=== PATIENT | male | born 1965 | race Caucasian/White ===

== ENCOUNTER 2025-03-12 09:25 | Inpatient (IN) | payer OTHER, SELFPAY ==
[2025-03-12 09:29] VITALS: BP 143/107; PULSE 69; RESP 18; O2SAT 98; BMI 26.0
--- NOTE | 2025-03-12 09:53 | ED_ITS ---
HPI - Psych General Chief Complaint: Anxiety Stated Complaint: depressed Time Seen by Provider: 03/12/25 09:47 Source: patient Mode of arrival: ambulatory Limitations: no limitations History of Present Illness ED Provider: Goldie Qureshi NP HPI Narrative: Patient is a 59-year-old male who presents emergency department for evaluation. At the time evaluation of patient his daughters has not bedside. He admits that he has been from his over the past 3 months and he has been having a difficult time dealing with this. Having increasing anxiety and depression. He isn't sleeping well. He has had an approximate 60 lb weight loss during this time, he does admit that he began exercising, but also has not been eating very much. He additionally is undergoing dental work with ?anchors? healing in his mouth so he has only been eating scrambled eggs, bananas, in a few whether soft items but this is a significant change from his prior diet and certainly a lower calorie intake. He denies any fevers, night sweats, shortness of breath, nausea, vomiting, abdominal pain, chest pain, rashes or lesions. No history of malignancy. He denies any recreational drug or alcohol usage. Endorses vague suicidal ideations but no specific plan, stating ?I can not go on like this?. He does not follow up with the primary care doctor regularly, he is not taking any prescribed medications. Related Data Home Medications ?Medication ?Instructions ?Recorded ?Confirmed No Known Home Meds 03/13/25 03/13/25 Allergies Allergy/AdvReac Type Severity Reaction Status Date / Time No Known Allergies Allergy Verified 03/12/25 09:34 Review of Systems 2 Review of Systems: Yes all other systems are reviewed and are negative PMFSH Past Medical History Attestation statement: The following information was validated with the patient. Source: old records reviewed Social History Social History Household Members: None Housing: House Do you presently have visiting nurse or other home services: No Alcohol intake: never Patient Tobacco Use Status: Former Tobacco user Tobacco use type: Cigar Smoked in Last 30 Days: Yes e-Cigarette/Vaping Use: Never Used Patient Interested in Nicotine Replacement: No Patient Given Instructions on How to Stop Smoking: No Second Hand Smoke Exposure: No Use of substances other than those prescribed or required for medical reasons: No Currently Displaying Signs/Symptoms of Drug Intoxication Withdrawal: No Any prior treatment program specific to substance use: No Have you been hit, kicked, punched, or otherwise hurt by someone within the past year? If so, by whom?: No Do you feel safe in your current relationship?: Yes Is there a partner from a previous relationship who is making you feel unsafe now?: No Are you made to feel afraid or neglected: No Spiritual Healthcare Practices: None Amish Healthcare Practices: None Cultural Healthcare Practices: none Advance Directives: No Advance Directives Information Provided: No Do you have a plan to hurt others: No Plan Recently lost weight without trying: Unsure How much weight loss: Unsure Eating poorly because of decreased appetite: No Nutrition screen score: 4 Nutrition Risks: No Nutritional Risk Poor oral hygiene: No Physical Exam 2 Vital Signs: Vital Signs: Last Vital Signs Temp 97.6 F 03/14/25 16:19 Pulse 89 03/14/25 16:19 Resp 20 03/14/25 16:19 BP 140/90 H 03/14/25 16:19 Pulse Ox 98 03/14/25 16:19 O2 Del Method Room Air 03/14/25 16:19 BMI result Body Mass Index 26.0 Appearance: Alert.?Oriented to person, place and time. No acute distress.?Normal affect. Eyes: Pupils equal, round and reactive to light.? ENT: Pharynx normal.?? Neck: Normal inspection.? Neck supple.?? CVS: Heart sounds normal. Normal heart rate and rhythm.? Pulses normal.?? Respiratory: No respiratory distress.? Lung sounds clear to auscultation bilaterally?? Abdomen: Soft and non-tender. Normoactive bowel sounds. Skin: Skin warm and dry.? Normal skin color.? Extremities: No lower extremity edema.? Neuro: Moves all extremities spontaneously. Sensation intact bilaterally. CN II- XII intact. No focal neuro deficits. Ambulates with normal steady gait. Course Reevaluation(s) Reevaluation #1: Evaluated by care team, deemed inpatient level of care bed search. Reevaluation #2: 03/13/2025; no events were reported by nursing overnight, VSS, to continue physician observation, patient is section 12, bed search is underway. Time: 09:35 Reevaluation #3: Time: 06:20 Date: 03/14/25 Provider: Eh Abdul MD Patient in physician observation for psychiatric evaluation.? Patient was been in the emergency department for 45 hours. No acute events reported overnight. Patient slept through the night however did have some anxiety and was given Ativan 2 mg orally with a positive affect. No current complaints. VS stable.? Patient was re-evaluated by the care team and is still in in-patient bed search. Will continue to monitor. Time: 18:30 Date: 03/14/25 Provider: Eh Abdul MD Physician observation ended at 1443. Patient to be admitted as inpatient to psychiatry. Medications Administered Generic Name Dose Route Start Last Admin Trade Name Freq PRN Reason Stop Dose Admin Hydroxyzine HCl 25 mg 03/14/25 12:54 03/14/25 18:22 Hydroxyzine Hcl 25 Mg Tablet PO 25 mg Q6H PRN Administration mild anxiety Discontinued Medications Generic Name Dose Route Start Last Admin Trade Name Freq PRN Reason Stop Dose Admin Diphenhydramine HCl 50 mg 03/13/25 02:27 03/13/25 02:33 Diphenhydramine Hcl 25 Mg Capsule PO 03/13/25 02:28 50 mg ONCE ONE Administration Ibuprofen 600 mg 03/13/25 02:27 03/13/25 02:34 Ibuprofen 600 Mg Tablet PO 03/13/25 02:28 600 mg ONCE ONE Administration Lorazepam 1 mg 03/12/25 14:26 03/12/25 14:29 Lorazepam 1 Mg Tablet PO 03/12/25 14:27 1 mg ONCE ONE Administration Lorazepam 2 mg 03/13/25 08:03 03/13/25 08:20 Lorazepam 1 Mg Tablet PO 03/13/25 08:04 2 mg ONCE ONE Administration Lorazepam 2 mg 03/13/25 21:17 03/13/25 21:27 Lorazepam 1 Mg Tablet PO 03/13/25 21:18 2 mg ONCE ONE Administration Melatonin 9 mg 03/12/25 23:22 03/12/25 23:27 Melatonin 3 Mg Tablet PO 03/12/25 23:23 9 mg ONCE ONE Administration Medical Decision Making Medical Decision Making MDM Narrative: Patient is a 51-year-old male with no reported past medical history presenting to emergency department for evaluation of anxiety, depression, vague suicidal ideations without a specific plan. He does admit to a recent weight loss of 60 lb over the past few months this is coupled with introduction of exercise, significant dietary changes due to his dental work as well as decreased caloric intake he is without any constitutional symptoms. Will obtain CBC to evaluate for leukocytosis/ anemia, CMP and lipase to evaluate for abnormal electrolytes /abnormal renal function/ abnormal hepatic/biliary function, TSH and reflex T4 and Urinalysis. In addition will obtain toxicology testing and refer to care team for safe disposition planning Differential Diagnosis Differential Diagnoses: The differential diagnosis associated with the presentation includes (See narrative above and below for further detail) Admission/Observation Consideration of admission/observation: Escalation of care including admission/observation considered Patient is being observed in the Emergency Department for depression and anxiety. Observation time was started at 10:00 on 03/12/2025?The patient is currently stable and non-toxic appearing. Observation is being initiated in the Emergency Department to allow time to help differentiate if the patient's depression and anxiety is due to Substance Induced Mood Disorder and Anxiety versus Major Depressive Disorder, Bipolar Hilary, Bipolar Depression, and Schizophrenia. The patient will receive frequent psychiatric assessments from the provider as well as from nursing staff. The patient will also be monitored for the need of PRN agitation medications such as Haldol, Ativan, and Benadryl. Consult Healthcare Provider Management of the patient was discussed with: Behavioral Health Provider (CARE team) Lab Data MDM Lab Attestation statement: I reviewed the patient's lab results. CBC is without leukocytosis anemia or thrombocytopenia. No electrolyte derangement. No MARTHA. Unremarkable LFTs and lipase. TSH is normal. alcohol level nondetectable 03/12/25 11:06 03/12/25 11:06 Labs: Lab Results 03/12/25 03/12/25 Range/Units 11:06 16:03 WBC 5.5 (4.8-10.8) X10*3/uL RBC 5.18 (4.60-5.80) X10*6/uL Hgb 16.5 (14.0-18.0) g/dl Hct 48.7 (42.0-52.0) % MCV 94.0 (80.0-98.0) fL MCH 31.9 (27.0-33.0) pg MCHC 33.9 (31.0-36.0) g/dl RDW 12.8 (11.0-16.0) % Plt Count 190 (160-400) X10*3/uL MPV 9.7 (9.4-12.4) fL Immature Gran % (Auto) 0.4 (0.0-0.4) % Neut % (Auto) 64.8 (45-73) % Lymph % (Auto) 28.4 (20-40) % Mcminn % (Auto) 5.3 (2-11) % Eos % (Auto) 0.7 (0-4) % Baso % (Auto) 0.4 (0-2) % Lymph # (Auto) 1.6 (1.2-4.9) X10*3/uL Mcminn # (Auto) 0.3 (0.1-1.2) X10*3/uL Eos # (Auto) 0.0 (0.0-0.4) X10*3/uL Baso # (Auto) 0.0 (0.0-0.2) X10*3/uL Abs Immat Gran (auto) 0.02 (0.00-0.03) X10*3/uL Absolute Neuts (auto) 3.6 (2.0-8.3) x10*3/uL Absolute Nucleated RBC 0.000 (0.0-0.012) X10*3/uL Nucleated RBC % (auto) 0.0 (0.0-0.2) /100WBC Sodium 139 (135-145) mmol/L Potassium 4.3 (3.3-5.1) mmol/L Chloride 106 (96-108) mmol/L Carbon Dioxide 25 (22-29) mmol/L Anion Gap 12 (12-20) BUN 27 H (9-16) mg/dL Creatinine 0.87 (0.5-1.4) mg/dL Estim Creat Clear Calc 89.5 Estimated GFR > 60 Random Glucose 92 (60-115) mg/dL Calcium 9.3 (8.4-10.2) mg/dL Magnesium 2.0 (1.6-2.6) mg/dL Total Bilirubin 0.4 (0.0-1.0) mg/dL AST 23 (5-37) U/L ALT 23 (0-40) U/L Alkaline Phosphatase 52 (39-117) U/L Total Protein 6.5 (6.5-8.0) g/dL Albumin 4.0 (3.5-5.0) g/dL Lipase 19 (8-78) U/L TSH 0.79 (0.32-4.0) uIU/mL Urine Color Yellow Urine Appearance Clear Urine pH 5.5 (5.0-9.0) Ur Specific [place] 1.025 (1.005-1.025) Urine Protein Negative (Neg-Trace) mg/dL Urine Glucose (UA) Negative (Negative) mg/dL Urine Ketones 15 (Negative) mg/dL Urine Blood Negative (Negative) Urine Nitrite Negative (Negative) Ur Leukocyte Esterase Negative (Negative) Salicylates < 5.0 L (15-30) mg/dL Urine Opiates Screen Not Detected (Not Detect) Ur Buprenorphine Scrn Not Detected (Not Detect) ng/mL Ur Oxycodone Screen Not Detected (Not Detect) ng/mL Urine Methadone Screen Not Detected (Not Detect) ng/mL Urine Fentanyl Screen Not Detected (Not Detect) Acetaminophen 4 (<30) mcg/mL Ur Barbiturates Screen Not Detected (Not Detect) Ur Phencyclidine Scrn Not Detected (Not Detect) Ur Amphetamines Screen Not Detected (Not Detect) U Benzodiazepines Scrn Not Detected (Not Detect) Urine Cocaine Screen Not Detected (Not Detect) U Marijuana (THC) Screen Not Detected (Not Detect) Ethyl Alcohol < 10 mg/dL Discharge Plan Discharge Clinical Impression: Depressed Patient Disposition: Admitted As Inpatient Interventions: Admission Worksheet (ED) Last Done: 03/14/25 14:36 Discharge Date/Time: 03/14/25 14:43
--- NOTE | 2025-03-12 10:47 | PC.NURSE ---
Pt tearful, anxious, cooperative; daughter visiting pt at this time; waiting medical clearance and care team daija
[2025-03-12 11:11] LABS: MANUAL DIFF FLAG NO
[2025-03-12 11:13] LABS: Basophils Percent Auto 0.4 % (0-2); Eosinophils Percent Auto 0.7 % (0-4); Hematocrit 48.7 % (42.0-52.0); Hemoglobin 16.5 g/dl (14.0-18.0); Imm Gran Abs Auto 0.02 X10*3/uL (0.00-0.03); Imm Gran Pct Auto 0.4 % (0.0-0.4); Lymphocytes Absolute Auto 1.6 X10*3/uL (1.2-4.9); Lymphocytes Percent Auto 28.4 % (20-40); Mean Corpuscular HGB Conc 33.9 g/dl (31.0-36.0); Mean Corpuscular Hemoglobin 31.9 pg (27.0-33.0); Mean Platelet Volume 9.7 fL (9.4-12.4); Monocytes Absolute Auto 0.3 X10*3/uL (0.1-1.2); Monocytes Percent Auto 5.3 % (2-11); Neutrophils Absolute Auto 3.6 x10*3/uL (2.0-8.3); Neutrophils Percent Auto 64.8 % (45-73); Platelet Count 190 X10*3/uL (160-400); Red Blood Count 5.18 X10*6/uL (4.60-5.80); Red Cell Distribution Width 12.8 % (11.0-16.0); White Blood Count 5.5 X10*3/uL (4.8-10.8)
--- NOTE | 2025-03-12 11:16 | MHC.EDTECH ---
Patient unable to provide urine sample at this time. This tech provided patient with a urine cup and two glasses of water.
[2025-03-12 11:37] VITALS: TEMP 36.8
[2025-03-12 11:42] LABS: Alanine Aminotransferase 23 U/L (0-40); Alkaline Phosphatase 52 U/L (39-117); Anion Gap 12 (12-20); Aspartate Amino Transferase 23 U/L (5-37); Bilirubin Total 0.4 mg/dL (0.0-1.0); Blood Urea Nitrogen 27 mg/dL (9-16); Calcium 9.3 mg/dL (8.4-10.2); Carbon Dioxide 25 mmol/L (22-29); Chloride 106 mmol/L (96-108); Creatinine Clr Calc Pharmacy 89.5; Estimated Glomerular Filt Rate > 60; Ethanol < 10 mg/dL; Glucose Random 92 mg/dL (60-115); Lipase 19 U/L (8-78); Potassium 4.3 mmol/L (3.3-5.1); Sodium 139 mmol/L (135-145); Total Protein 6.5 g/dL (6.5-8.0)
[2025-03-12 11:57] LABS: TSH reflex Free T4 0.79 uIU/mL (0.32-4.0)
[2025-03-12 12:08] LABS: Acetaminophen LAB 4 mcg/mL (<30); Salicylate < 5.0 mg/dL (15-30)
[2025-03-12] MEDS: LORazepam 1 MG TABLET PO (14:29)
--- NOTE | 2025-03-12 14:38 | PC.NURSE ---
Pt c/o increasing anxiety; made aware and pt medicated per orders; pt currently resting calmly, watching tv; will cont to monitor/tx per orders
[2025-03-12 16:06] VITALS: BP 131/90; PULSE 71; RESP 13; TEMP 36.4; O2SAT 98
[2025-03-12 16:10] LABS: Appearance Urine Clear; Color Urine Yellow; Glucose Urine UA Negative (Negative); Leukocyte Esterase Urine Negative (Negative); Nitrite Urine Negative (Negative); PH 5.5 (5.0-9.0); Specific Gravity - Urine 1.025 (1.005-1.025); Urine Blood Negative (Negative); Urine Ketones 15 mg/dL (Negative); Urine Protein Negative (Neg-Trace)
[2025-03-12 16:19] LABS: Amphetamine Screen Urine Not Detected (Not Detect); Barbiturates, Urine Not Detected (Not Detect); Benzodiazepines Screen Urine Not Detected (Not Detect); Buprenorphine Scr Not Detected (Not Detect); Cannabinoid Screen Urine Not Detected (Not Detect); Cocaine Screen Urine Not Detected (Not Detect); Fentanyl, urine Not Detected (Not Detect); Methadone Screen, Urine Not Detected (Not Detect); Opiate Screen Urine Not Detected (Not Detect); Oxycodone Screen Urine Not Detected (Not Detect); Phencyclidine Screen Urine Not Detected (Not Detect)
--- NOTE | 2025-03-12 16:57 | PC.NURSE ---
Pt reports +decrease in anxiety with meds gv; pt talking with staff and staying in the common area because he feels comfortable and less anxious around the staff; pt tolerating PO intake
--- NOTE | 2025-03-12 21:20 | PC.NURSE ---
patient appears to remai at rest presently respirations are even and unlabord patient appears in no distress.
[2025-03-12] MEDS: Melatonin 3 MG TABLET 9 MG PO (23:27)
[2025-03-12 23:41] VITALS: BP 131/89; PULSE 93; RESP 18; TEMP 36.4; O2SAT 97
--- NOTE | 2025-03-13 00:11 | PC.NURSE ---
patient who ad requested medication for sleep and seemed irritable now appears to be asleep in bed will continue to monitor
[2025-03-13] MEDS: diphenhydrAMINE HCL 25 MG CAPSULE 50 MG PO (02:33)
[2025-03-13] MEDS: Ibuprofen 600 MG TABLET PO (02:34)
[2025-03-13] MEDS: LORazepam 1 MG TABLET 2 MG PO ×2 (08:20→21:27)
--- NOTE | 2025-03-13 08:22 | PC.NURSE ---
medicated for reported anxiety with ativan. has just finished a conversation with CARE TEAM clinician.
[2025-03-13 08:35] VITALS: BP 119/83; PULSE 78; RESP 12; TEMP 36.6; O2SAT 97
--- NOTE | 2025-03-13 08:46 | PHA.MEDREC ---
Pharmacy Consult ? Medication Reconciliation Pharmacy has completed the medication reconciliation. Patient confirmed he is on no medications at home. Patients daughter also confirmed he takes no medications at home. Pharmacy claims show nothing.
--- NOTE | 2025-03-13 09:26 | PC.NURSE ---
pharmacy has called daughter and confirmed that patient is not on any medications. Pt had stated the same. Appears calm now, watching TV in common area.
--- NOTE | 2025-03-13 09:36 | MHC.CARE ---
Pt will be an inpatient bedsearch
[2025-03-13 15:31] VITALS: BP 118/89; PULSE 84; RESP 18; TEMP 37.3; O2SAT 99
--- NOTE | 2025-03-14 | ECG_ITS ---
Test Reason : R/O PROLONGED QT Blood Pressure : */* mmHG Vent. Rate : 82 BPM Atrial Rate : 82 BPM P-R Int : 138 ms QRS Dur : 102 ms QT Int : 374 ms P-R-T Axes : 73 15 8 degrees QTcB Int : 436 ms Normal sinus rhythm Normal ECG No previous ECGs available Referred By: Eh Abdul Electronically Signed By: Umer Ruano
--- NOTE | 2025-03-14 05:28 | PC.NURSE ---
Patient slept through the night, no distress observed/reported, patient currently not on any home medication, Ativan 2 mg PO administered for anxiety with + effect, 15 minutes safety check, no behavior and safety concerns, disposition per care team sec-12 inpatient bed search, will continue to monitor
[2025-03-14 06:07] VITALS: RESP 16
--- NOTE | 2025-03-14 07:14 | PC.NURSE ---
Assumed pt care at 0645. Pt awake and sitting at table. Respirations even and unlabored. Continue plan of care for inpatient bed search.
[2025-03-14 08:28] VITALS: BP 126/83; PULSE 89; RESP 14; TEMP 36.5; O2SAT 98
--- NOTE | 2025-03-14 14:27 | PC.NURSE ---
pt pacing throughout most of the morning but remains calm and cooperative, no apparent distress. Pending giving report to send patient upstairs
[2025-03-14 16:18] VITALS: BMI 26.1
[2025-03-14 16:19] VITALS: BP 140/90; PULSE 89; RESP 20; TEMP 36.4; O2SAT 98
--- NOTE | 2025-03-14 17:12 | PC.NURSE ---
Los Boby admitted from the POD this afternoon with diagnosis of vague SI in the setting of recent separation. Per CARE team assessment he self presented to the ED reporting passive SI, hopelessness, and no sleep for many days due to racing thoughts. Boby reports his daughter urged him to seek help as he described himself as falling apart . He has no psychiatric history and is not known to the CARE team. He has seasonal allergies and recent dental work resulting in full dentures with a titanium anchor. Boby was pleasant but looked tense on arrival, was fully cooperative in the admission process and at times became tearful during conversation. He denies SI/HI/AVH and rates depression 3/10 and anxiety 6. He states that this all started when his daughter asked him how he was to which he replied, I'm tired of being sad. He takes no medication and has no psychiatric providers/therapist. He reports he stopped smoking cigars 1 week ago, rarely drinks alcohol, (last drank on ), and denies illicit drug use. Skin and safety check unremarkable. He met with Dr Evans and signed a CV- then 3 day notice. Placed on q 15 min safety checks and declined any other services offered. He is sitting in the kitchen watching TV waiting for dinner to come up.?
[2025-03-14] MEDS: hydrOXYzine HCL 25 MG TABLET PO (18:22)
[2025-03-14 20:00] VITALS: BP 138/90; PULSE 91; RESP 16; TEMP 36.8; O2SAT 98
[2025-03-14] MEDS: traZODone HCL 50 MG TABLET PO ×2 (20:38→22:11)
[2025-03-15 08:00] VITALS: BP 120/84; PULSE 87; RESP 18; TEMP 36.9; O2SAT 98
[2025-03-15] MEDS: OLANZapine 5 MG TABLET PO ×2 (08:55→21:14)
[2025-03-15 09:06] LABS: Estimated Average Glucose 100 mg/dL; Hemoglobin A1C 132.0748 umol/L; Hemoglobin A1c % 5.1 % (<6.0); Total Hemoglobin (HGBA1C) 4050.8621 umol/L
[2025-03-15 09:09] LABS: Cholesterol 138 mg/dL (<200); HDL Cholesterol 33 mg/dL (>40); LDL Cholesterol Calculated 75 mg/dL (<100); Magnesium 1.8 mg/dL (1.6-2.6); Triglycerides 152 mg/dL (<150)
[2025-03-15 09:26] LABS: Thyroid Stimulating Hormone 1.09 uIU/mL (0.32-4.0)
[2025-03-15 09:38] LABS: Folate 9.1 ng/mL (> or = 4.0); Vitamin B12 474 pg/mL (200-900)
--- NOTE | 2025-03-15 09:51 | P.HPPS_ITS ---
HPI Date of Service: 03/15/25 Chief Complaint: depressed Sources of Information: patient interviewed, chart reviewed and crisis/core team assessment reviewed HPI Subjective Notes: Soler Warning, Conditional Voluntary and 3 Day Narrative: met with pt 03/15/25 Patient is a 59 yo who presents for depression/anxiety with vague SI in face of ending of marriage; Pt not sure if he's depressed but he's sure his anxiety has become worse. Patient's moved out in December. For past few months he's coped on his own, but with increased lonliness and chronic insomnia becoming worse, his anxiety increased. Pt says for he's not able to sleep for 3 days straight (denies any manic symptoms). Pt says in lonliness he's had intermittent thoughts of wishing he would not wake up, but says they were just passing thoughts and never with any intent or plans and did not really want to be ...He says i have a daughter... i would never do it... He told his daughter I'm tired of being sad and he thinks she overreacted; patient reports that his daughter's mother from a heroin overdose so she is particularly sensitive. Regarding what he said in ED.. Patient said that as the question were opposed, if he ever were to attempt suicide those would be the ways, but he reiterates that he had no intent or plans at all and would never do it. Patient said what he needs most is help with sleep; he also feels that helpful with anxiety and maybe depression would help to0. 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 Substance History: no alcohol/drug abuse Diagnostics Vital Signs (24Hr): Vital Signs - 24 hr 03/14/25 16:19 03/14/25 20:00 03/15/25 08:00 Temperature 97.6 F 98.2 F 98.4 F Pulse Rate 89 91 87 Respiratory Rate 20 16 18 Blood Pressure 140/90 H 138/90 H 120/84 Pulse Oximetry 98 98 98 Oxygen Delivery Method Room Air Room Air Room Air BMI result Body Mass Index 26.1 Labs 03/12/25 11:06 03/12/25 11:06 Labs: Laboratory Results - last 48 hr 03/15/25 03/15/25 08:20 08:21 Estimat Average Glucose 100 Hemoglobin A1c % 5.1 Magnesium 1.8 Triglycerides 152 H Cholesterol 138 LDL Cholesterol, Calc 75 HDL Cholesterol 33 L Vitamin B12 474 Folate 9.1 TSH 1.09 Free T4 1.10 Meds/Allergies Meds Home Medications ?Medication ?Instructions ?Recorded ?Confirmed ?Type No Known Home Meds 03/13/25 03/13/25 History Allergies Allergies Allergy/AdvReac Type Severity Reaction Status Date / Time No Known Allergies Allergy Verified 03/12/25 09:34 Mental Status Exam Mental Status Exam Narrative: Pt is alert and oriented; behavior is cooperative, friendly and calm; patient is not in distress; dressed in casual attire with adequate hygiene and grooming; mood is described as anxious and affect congruent; eye contact appropriate; Speech is normal rate, volume and prosody and not pressured; no psychomotor agitation/retardation present; thought process is organized and goal directed; Thought content is on tx; otherwise pertinent to relevant topics and without any delusional content, paranoid ideations or grandiosity; denies any SI/HI. Denies AVH and there is no evidence of perceptual disturbance. Patients insight and judgment appear intact. Assessment & Plan Assessment & Plan (1) Anxiety: Status: Acute Code(s): F41.9 - Anxiety disorder, unspecified (2) Depressed: Status: Acute Code(s): F32.A - Depression, unspecified Plan Patient is a 59 yo who presents for depression/anxiety with vague SI in face of ending of marriage; Pt not sure if he's depressed but he's sure his anxiety has become worse. Patient's moved out in December. For past few months he's coped on his own, but with increased lonliness and chronic insomnia becoming worse, his anxiety increased. Pt says for he's not able to sleep for 3 days straight (denies any manic symptoms). Pt says in lonliness he's had intermittent thoughts of wishing he would not wake up, but says they were just passing thoughts and never with any intent or plans and did not really want to be ...He says i have a daughter... i would never do it... He told his daughter I'm tired of being sad and he thinks she overreacted; patient reports that his daughter's mother from a heroin overdose so she is particularly sensitive. Regarding what he said in ED.. Patient said that as the question were opposed, if he ever were to attempt suicide those would be the ways, but he reiterates that he had no intent or plans at all and would never do it. Patient said what he needs most is help with sleep; he also feels that helpful with anxiety and maybe depression would help to0. -no hx of tad, -no drug or alcohol abuse -no history of self-harm Formulation/clinical reasoning: Patient reports anxiety and what sounds like depression as well in the face of pending divorce. Patient has talked about suicide but he is adamant that it was just a passive thought, fleeting and never with any intent or plans; he denies any history at all of self-harm in any way and cites his daughter as a very strong protective factor. Patient endorses mild anxiety or depression at moments throughout lifetime but never lasting and easily cope with on his own. Patient placed a 3 day notice soon after signing a CV, wanting to get back to work which seems a helpful distraction to him. Patient is open to starting medications and after discussing risks/side effects agrees to Lexapro and doxepin for sleep as well as clonidine for anxiety which he already found helpful. Patient also asks for help with a therapist. Plan: CV; now 3 day notice Q 15 minute checks Start Lexapro 10 mg daily Start doxepin 10 mg q.h.s. for insomnia Start clonidine 0.1 mg q.4 p.r.n. for anxiety Will got the collateral Patient educated on: diagnosis, medication risk/benefits and therapeutic strategies Informed Consent: understands Reason for continued inpatient stay Substantial Risk for: rapid decompensation Statement Statement: I have reviewed the history and physical and performed a pertinent examination on my patient. No changes have occurred unless specified. If the History and Physical was not performed prior to admission, the Hospitalist's service will be consulted for completing the admission physical. Time Spent With Patient Time: Total time managing care of this patient today ____ minutes.
[2025-03-15 14:26] VITALS: BP 142/96
[2025-03-15] MEDS: cloNIDine HCL 0.1 MG TABLET PO ×3 (14:26→21:08)
[2025-03-15 18:26] VITALS: BP 115/83
[2025-03-15] MEDS: Escitalopram Oxalate 5 MG TABLET PO (19:15)
[2025-03-15 19:54] VITALS: BP 131/85; PULSE 86; TEMP 36.8; O2SAT 97
[2025-03-15 21:08] VITALS: BP 131/85
[2025-03-15] MEDS: Doxepin HCl 10 MG CAPSULE PO (21:08)
[2025-03-15] MEDS: traZODone HCL 50 MG TABLET PO (21:14)
[2025-03-16 08:00] VITALS: BP 102/69; PULSE 81; RESP 97; TEMP 36.3; O2SAT 97
[2025-03-16] MEDS: Escitalopram Oxalate 10 MG TABLET PO (08:20)
--- NOTE | 2025-03-16 11:22 | HO.PSYCHPN ---
Subjective Subjective Date of Service: 03/16/25 Reason For Visit: depressed Interim History: Met with patient; discussed with team pt reports that he's feeling better; his mood is better and anxiety lower. Pt slept well last night which he found restorative. Discussed medications and he agrees to see if he can continue to sleep with just the clonidine and Doxepin rather than the zyprexa. Pt denies any SI at all. He is looking forward to getting back to work which he finds a welcome distractions. Patient also wanting to engage in therapy. Discussed the dissolution of his marriage and patient said that he is been able to come to terms with it. Patient's 3 day notice is due tomorrow. He wants to discharge, feeling safe and ready to return home. Mental Status Exam Mental Status Exam Narrative: Pt is alert and oriented; behavior is cooperative, friendly and calm; patient is not in distress; dressed in casual attire with adequate hygiene and grooming; mood is described as better and affect congruent; eye contact appropriate; Speech is normal rate, volume and prosody and not pressured; no psychomotor agitation/retardation present; thought process is organized and goal directed; Thought content is on tx; otherwise pertinent to relevant topics and without any delusional content, paranoid ideations or grandiosity; denies any SI/HI. Denies AVH and there is no evidence of perceptual disturbance. Patients insight and judgment fair. Diagnostics Vital Signs (24Hr): Vital Signs - 24 hr 03/15/25 14:26 03/15/25 18:26 03/15/25 19:54 Temperature 98.2 F Pulse Rate 86 Respiratory Rate Blood Pressure 142/96 H 115/83 131/85 Pulse Oximetry 97 Oxygen Delivery Method Room Air 03/15/25 21:08 03/16/25 08:00 Temperature 97.3 F Pulse Rate 81 Respiratory Rate 97 H Blood Pressure 131/85 102/69 Pulse Oximetry 97 Oxygen Delivery Method Room Air BMI result Body Mass Index 26.1 Labs 03/12/25 11:06 03/12/25 11:06 Labs: Laboratory Results - last 48 hr 03/15/25 03/15/25 08:20 08:21 Estimat Average Glucose 100 Hemoglobin A1c % 5.1 Magnesium 1.8 Triglycerides 152 H Cholesterol 138 LDL Cholesterol, Calc 75 HDL Cholesterol 33 L Vitamin B12 474 Folate 9.1 TSH 1.09 Free T4 1.10 Medications Medications Current Medications Acetaminophen (Acetaminophen 325 Mg Tablet) 650 mg PO Q6H PRN PRN Reason: Headache/Pain, Scale 1-10 Al Hydroxide/Mg Hydroxide (Magnesium Hydrox/Alum Hydrox 30 Ml Oral.Susp) 30 ml PO Q6H PRN PRN Reason: Heartburn/Nausea Clonidine HCl (Clonidine Hcl 0.1 Mg Tablet) 0.1 mg PO Q4H PRN; Protocol PRN Reason: moderate anxiety Last Admin: 03/15/25 18:26 Dose: 0.1 mg Clonidine HCl (Clonidine Hcl 0.1 Mg Tablet) 0.1 mg PO BEDTIME MAXX; Protocol Last Admin: 03/15/25 21:08 Dose: 0.1 mg Doxepin HCl (Doxepin Hcl 10 Mg Capsule) 10 mg PO BEDTIME MAXX Last Admin: 03/15/25 21:08 Dose: 10 mg Escitalopram Oxalate (Escitalopram Oxalate 10 Mg Tablet) 10 mg PO DAILY MAXX Last Admin: 03/16/25 08:20 Dose: 10 mg Hydroxyzine HCl (Hydroxyzine Hcl 25 Mg Tablet) 25 mg PO Q6H PRN PRN Reason: mild anxiety Last Admin: 03/14/25 18:22 Dose: 25 mg Magnesium Hydroxide (Milk Of Magnesia 30 Ml Oral.Susp) 30 ml PO DAILY PRN PRN Reason: Constipation Nicotine Polacrilex (Nicotine Polacrilex 2 Mg Gum) 4 mg BUCCAL Q2H PRN PRN Reason: Nicotine Cravings Olanzapine (Olanzapine 5 Mg Tablet) 5 mg PO Q4H PRN PRN Reason: agitation Last Admin: 03/15/25 21:14 Dose: 5 mg Trazodone HCl (Trazodone Hcl 50 Mg Tablet) 50 mg PO BEDTIME MRX1 PRN PRN Reason: Insomnia Last Admin: 03/15/25 21:14 Dose: 50 mg Allergies Allergies Allergy/AdvReac Type Severity Reaction Status Date / Time No Known Allergies Allergy Verified 03/12/25 09:34 Assessment & Plan Assessment & Plan (1) Anxiety: Status: Acute Code(s): F41.9 - Anxiety disorder, unspecified (2) Depressed: Status: Acute Code(s): F32.A - Depression, unspecified Plan Patient is a 59 yo who presents for depression/anxiety with vague SI in face of ending of marriage; Pt not sure if he's depressed but he's sure his anxiety has become worse. Patient's moved out in December. For past few months he's coped on his own, but with increased lonliness and chronic insomnia becoming worse, his anxiety increased. Pt says for he's not able to sleep for 3 days straight (denies any manic symptoms). Pt says in lonliness he's had intermittent thoughts of wishing he would not wake up, but says they were just passing thoughts and never with any intent or plans and did not really want to be ...He says i have a daughter... i would never do it... He told his daughter I'm tired of being sad and he thinks she overreacted; patient reports that his daughter's mother from a heroin overdose so she is particularly sensitive. Regarding what he said in ED.. Patient said that as the question were opposed, if he ever were to attempt suicide those would be the ways, but he reiterates that he had no intent or plans at all and would never do it. Patient said what he needs most is help with sleep; he also feels that helpful with anxiety and maybe depression would help to0. -no hx of tad, -no drug or alcohol abuse -no history of self-harm Formulation/clinical reasoning: Patient reports anxiety and what sounds like depression as well in the face of pending divorce. Patient has talked about suicide but he is adamant that it was just a passive thought, fleeting and never with any intent or plans; he denies any history at all of self-harm in any way and cites his daughter as a very strong protective factor. Patient endorses mild anxiety or depression at moments throughout lifetime but never lasting and easily cope with on his own. Patient placed a 3 day notice soon after signing a CV, wanting to get back to work which seems a helpful distraction to him. Patient is open to starting medications and after discussing risks/side effects agrees to Lexapro and doxepin for sleep as well as clonidine for anxiety which he already found helpful. Patient also asks for help with a therapist. Hospital course: 03/16 pt reports that he's feeling better; his mood is better and anxiety lower. Pt slept well last night which he found restorative. Discussed medications and he agrees to see if he can continue to sleep with just the clonidine and Doxepin rather than the zyprexa. Pt denies any SI at all. He is looking forward to getting back to work which he finds a welcome distractions. Patient also wanting to engage in therapy. Discussed the dissolution of his marriage and patient said that he is been able to come to terms with it. Patient's 3 day notice is due tomorrow. He wants to discharge, feeling safe and ready to return home. Patient has remained in good behavioral and impulse control throughout his time on the unit. He has denied any actual SI throughout this admission, says he has never had actual SI and would never end his life; patient has no history of self-harm. Patient is future oriented, looking forward to getting back to work which he finds helpful. Patient able to sleep, feels safe and asked for discharge. His 3 day notice is coming due. Patient is not in imminent risk for harm to self or others and request for discharge honored. Plan: CV; now 3 day notice Q 15 minute checks Continue Lexapro 10 mg daily Increase to doxepin 20 mg q.h.s. for insomnia Continue clonidine 0.1 mg q.4 p.r.n. for anxiety and scheduled at bedtime Will got the collateral Patient educated on: diagnosis, medication risk/benefits and therapeutic strategies Informed Consent: understands Reason for continued inpatient stay Substantial Risk for: stable for discharge Time Spent With Patient Time: Total time managing care of this patient today ____ minutes.
[2025-03-16 17:07] VITALS: BP 108/73
[2025-03-16] MEDS: cloNIDine HCL 0.1 MG TABLET PO ×2 (17:07→20:41)
[2025-03-16 20:00] VITALS: BP 142/76; PULSE 96; TEMP 36.8; O2SAT 97
[2025-03-16 20:41] VITALS: BP 142/76
[2025-03-16] MEDS: Doxepin HCl 10 MG CAPSULE 20 MG PO (20:41)
[2025-03-17 08:05] VITALS: BP 111/76; PULSE 80; TEMP 36.8; O2SAT 96
[2025-03-17] MEDS: Escitalopram Oxalate 10 MG TABLET PO (08:47)
--- NOTE | 2025-03-17 09:19 | PM.PSYDC ---
DS: Providers Provider Date of Service: 03/17/25 Date of admission: 03/14/25 12:54 Date of discharge: 03/17/25 Primary care physician: None Physician Attending physician on admission: Adi Evans Attending physician on discharge: Adi Evans DS: Diagnosis Discharge Diagnosis (1) Anxiety: Status: Acute (2) Depressed: Status: Acute DS: Medications Discharge Medications Home Medications: Home Medications ?Medication ?Instructions ?Recorded ?Confirmed No Known Home Meds 03/13/25 03/13/25 Mental Status Exam Mental Status Exam Narrative: Pt is alert and oriented; behavior is cooperative, friendly and calm; patient is not in distress; dressed in casual attire with adequate hygiene and grooming; mood is described as good and affect congruent; eye contact appropriate; Speech is normal rate, volume and prosody and not pressured; no psychomotor agitation/retardation present; thought process is organized and goal directed; Thought content is on tx; otherwise pertinent to relevant topics and without any delusional content, paranoid ideations or grandiosity; denies any SI/HI. Denies AVH and there is no evidence of perceptual disturbance. Patients insight and judgment fair. Data Data Completed and Pending Completed studies during hospitalization [Text1]: 03/12/25 03/12/25 03/15/25 11:06 16:03 08:20 WBC 5.5 RBC 5.18 Hgb 16.5 Hct 48.7 MCV 94.0 MCH 31.9 MCHC 33.9 RDW 12.8 Plt Count 190 MPV 9.7 Immature Gran % (Auto) 0.4 Neut % (Auto) 64.8 Lymph % (Auto) 28.4 [place] % (Auto) 5.3 Eos % (Auto) 0.7 Baso % (Auto) 0.4 Lymph # (Auto) 1.6 [place] # (Auto) 0.3 Eos # (Auto) 0.0 Baso # (Auto) 0.0 Abs Immat Gran (auto) 0.02 Absolute Neuts (auto) 3.6 Absolute Nucleated RBC 0.000 Nucleated RBC % (auto) 0.0 Sodium 139 Potassium 4.3 Chloride 106 Carbon Dioxide 25 Anion Gap 12 BUN 27 H Creatinine 0.87 Estim Creat Clear Calc 89.5 Estimated GFR > 60 Random Glucose 92 Estimat Average Glucose Hemoglobin A1c % Calcium 9.3 Magnesium 2.0 Total Bilirubin 0.4 AST 23 ALT 23 Alkaline Phosphatase 52 Total Protein 6.5 Albumin 4.0 Triglycerides Cholesterol LDL Cholesterol, Calc HDL Cholesterol Lipase 19 Vitamin B12 474 Folate 9.1 TSH 0.79 Free T4 Urine Color Yellow Urine Appearance Clear Urine pH 5.5 Ur Specific [place] 1.025 Urine Protein Negative Urine Glucose (UA) Negative Urine Ketones 15 Urine Blood Negative Urine Nitrite Negative Ur Leukocyte Esterase Negative Salicylates < 5.0 L Urine Opiates Screen Not Detected Ur Buprenorphine Scrn Not Detected Ur Oxycodone Screen Not Detected Urine Methadone Screen Not Detected Urine Fentanyl Screen Not Detected Acetaminophen 4 Ur Barbiturates Screen Not Detected Ur Phencyclidine Scrn Not Detected Ur Amphetamines Screen Not Detected U Benzodiazepines Scrn Not Detected Urine Cocaine Screen Not Detected U Marijuana (THC) Screen Not Detected Ethyl Alcohol < 10 03/15/25 08:21 WBC RBC Hgb Hct MCV MCH MCHC RDW Plt Count MPV Immature Gran % (Auto) Neut % (Auto) Lymph % (Auto) [place] % (Auto) Eos % (Auto) Baso % (Auto) Lymph # (Auto) [place] # (Auto) Eos # (Auto) Baso # (Auto) Abs Immat Gran (auto) Absolute Neuts (auto) Absolute Nucleated RBC Nucleated RBC % (auto) Sodium Potassium Chloride Carbon Dioxide Anion Gap BUN Creatinine Estim Creat Clear Calc Estimated GFR Random Glucose Estimat Average Glucose 100 Hemoglobin A1c % 5.1 Calcium Magnesium 1.8 Total Bilirubin AST ALT Alkaline Phosphatase Total Protein Albumin Triglycerides 152 H Cholesterol 138 LDL Cholesterol, Calc 75 HDL Cholesterol 33 L Lipase Vitamin B12 Folate TSH 1.09 Free T4 1.10 Urine Color Urine Appearance Urine pH Ur Specific [place] Urine Protein Urine Glucose (UA) Urine Ketones Urine Blood Urine Nitrite Ur Leukocyte Esterase Salicylates Urine Opiates Screen Ur Buprenorphine Scrn Ur Oxycodone Screen Urine Methadone Screen Urine Fentanyl Screen Acetaminophen Ur Barbiturates Screen Ur Phencyclidine Scrn Ur Amphetamines Screen U Benzodiazepines Scrn Urine Cocaine Screen U Marijuana (THC) Screen Ethyl Alcohol DS: Summary Hospital Course Hospital Course: Patient is a 59 yo who presents for depression/anxiety with vague SI in face of ending of marriage; Pt not sure if he's depressed but he's sure his anxiety has become worse. Patient's moved out in December. For past few months he's coped on his own, but with increased lonliness and chronic insomnia becoming worse, his anxiety increased. Pt says for he's not able to sleep for 3 days straight (denies any manic symptoms). Pt says in lonliness he's had intermittent thoughts of wishing he would not wake up, but says they were just passing thoughts and never with any intent or plans and did not really want to be ...He says i have a daughter... i would never do it... He told his daughter I'm tired of being sad and he thinks she overreacted; patient reports that his daughter's mother from a heroin overdose so she is particularly sensitive. Regarding what he said in ED.. Patient said that as the question were opposed, if he ever were to attempt suicide those would be the ways, but he reiterates that he had no intent or plans at all and would never do it. Patient said what he needs most is help with sleep; he also feels that helpful with anxiety and maybe depression would help to0. -no hx of tad, -no drug or alcohol abuse -no history of self-harm Hospital course/ Formulation/clinical reasoning: On admission, patient was cooperative and friendly and in good behavioral and impulse control. He did not really think he needed to be on the unit, denying any actual SI but agreed that he could use help with his anxiety and insomnia and so signed a CV though signed a 3 day notice right afterwards, saying he wanted to get back to work soon, finding work a welcomed distraction. Patient reports anxiety and what sounds like depression as well in the face of pending divorce. Patient has had passing thoughts about suicide but he is adamant that it never amounted to more than passively wishing he would not wake up the next day; says thoughts were fleeting and never with any intent or plans; he denies any history at all of self-harm in any way and cites his daughter as a very strong protective factor. Patient endorses mild anxiety or depression at moments throughout lifetime but never lasting and easily cope with on his own. Patient is open to starting medications and after discussing risks/side effects agrees to Lexapro and doxepin for sleep as well as clonidine for anxiety which he already found helpful. Patient also asks for help with a therapist. Patient was started on Lexapro; he was also started on clonidine p.r.n. at at bedtime which he said was very helpful for his anxiety. Patient has had insomnia for the past 3 months but never prior to this; discussed options and patient agreed to try doxepin since it was also helpful for anxiety and depression and could help him sleep. Patient very soon reported he was feeling better, saying his mood was better and anxiety lower. Pt slept well which he found restorative. Discussed medications, risks/side-effects and pt agrees to use the clonidine and Doxepin (and not zyprexa; trazodone not helpful). Pt remained without any SI at all. He remained in good behavioral and impulse control, appropriate with peers and staff and engaged in treatment. Patient is looking forward to getting back to work which he enjoys. He is also eager to engage in therapy.. Discussed the dissolution of his marriage and patient said that he is been able to come to terms with it. Patient remained wanting discharge, feeling safe and ready to return home. Patient has remained in good behavioral and impulse control throughout his time on the unit. He has denied any actual SI throughout this admission, says he has never had actual SI and would never end his life; patient has no history of self-harm. Patient is future oriented, looking forward to getting back to work which he finds helpful. Patient able to sleep, feels safe and asked for discharge. His 3 day notice is coming due. Patient is not in imminent risk for harm to self or others and request for discharge honored. Medications: Lexapro 10 mg daily doxepin 20 mg q.h.s. for insomnia clonidine 0.1 mg q.4 p.r.n. for anxiety and sleep Time Spent with Patient Time attestation: Total time managing care of this patient today ____ minutes. Discharge Plan Discharge Patient Disposition: Home, Self-Care Discharge Diagnosis: Anxiety, nos; MDD, moderate, single episode, in partial remission Referrals: Physician,None [Primary Care Provider] - 1 Week Discharge Medications: No Action No Known Home Meds Discharge Orders: Discharge Order (Routine); Ordered 03/17/25 Ordered By: Adi Evans Diet: Regular diet Activity on Discharge: As tolerated Stand Alone Forms: Patient Portal Discharge page Print Language: Uz[place] Care Plan Goals: Maintain mood and safe behaviors Take medications as prescribed Practice coping skills Continue with outpatient providers and reach out to them as needed Health Concerns: Mood stability and behaviors Plan of Treatment: Follow up with your PCP, psychiatric provider and other outpatient providers regarding above concerns Take medications as prescribed Assessment: Risk assessment at time of discharge:? Patient was interviewed prior to discharge and found to be fully oriented and without any SI or HI. Patient has improved insight and judgment and wants to continue treatment. Patient is not in imminent risk of harm to self or others and has a safety plan that includes presenting to the closest ER or calling 911 if feeling unsafe.? Patient has been observed closely by nursing and unit staff throughout admission; patient has not engaged in any behaviors that suggest dangerousness to self or others and has demonstrated appropriate behaviors and impulse control
[2025-03-17 09:46] VITALS: BMI 26.1
== END 2025-03-17 10:55 | disposition home or self-care (01) | DRG 885 ==
LOC: HO.ED 03-14 13:01 → HO.PM5 03-14 13:19
PROVIDERS: Nurse Practitioner Family; Admitting Provider Clinical Nurse Specialist Psychiatric/Mental Health, Adult; Emergency Provider Emergency Medicine; Visit Provider Psychiatry & Neurology Psychiatry
DX: F32.1 Major depressive disorder, single episode, moderate (principal); R45.851 Suicidal ideations; F41.9 Anxiety disorder, unspecified; Z63.5 Disruption of family by separation and divorce; Z87.891 Personal history of nicotine dependence; Z79.899 Other long term (current) drug therapy
CPT/HCPCS: 36415; 80053; 80061; 80143; 80179; 80307; 81003; 82607; 82746; 83036; 83690; 83735; 84439; 84443; 85025; 93005; 99285; S9485

== ENCOUNTER → 2025-03-14 09:24 | Outpatient (BNV) | payer OTHER, SELFPAY | PROVIDERS: Admitting Provider Clinical Nurse Specialist Psychiatric/Mental Health, Adult; Emergency Provider Emergency Medicine; Visit Provider Internal Medicine Cardiovascular Disease | DX: Z13.6 Encounter for screening for cardiovascular disorders (principal) | CPT/HCPCS: 93010 ==

== ENCOUNTER → 2025-03-14 12:54 | Outpatient (BNV) | payer OTHER, SELFPAY | PROVIDERS: Admitting Provider Clinical Nurse Specialist Psychiatric/Mental Health, Adult; Emergency Provider Emergency Medicine; Visit Provider Psychiatry & Neurology Psychiatry | DX: F32.2 Major depressive disorder, single episode, severe without psychotic features (principal); F41.9 Anxiety disorder, unspecified | CPT/HCPCS: 90792; 99231; 99239 ==